=== PATIENT | female | born 1960 | race Caucasian/White ===

== ENCOUNTER → 2019-08-24 | Outpatient (CLI) | payer OTHER ==
--- NOTE | 2019-08-24 15:52 | KCIC ---
CT ORBITS WO CONTRAST Clinical indications: Chronic right mastoiditis, right-sided hearing loss, tympanic membrane perforation, otalgia, otorrhea. Technique: Helical CT scanning of both temporal bones was performed. 1 mm reconstructed axial and coronal small [id number] CT images of each temporal bone were generated and reviewed on a computer monitor. One or more of the following dose reduction techniques were utilized: Automated exposure control (AEC), Adjustment of mA and/or kV according to patient size, Use of iterative reconstruction technique such as ASiR, CT scan done according to ALARA and image gently/image wisely Findings: Right temporal bone: Mild fluid in the mastoid air cells. The middle ear ossicles are identified and no erosion is seen. The scutum appears normal. The middle ear cavity is clear. The vestibulocochlear complex and semicircular canals are morphologically normal in appearance. The internal auditory canal is unremarkable. The facial nerve canal is unremarkable. The jugular foramen is unremarkable. The external ear canal is open. Left temporal bone: The mastoid air cells are clear. The middle ear ossicles are identified and no erosion is seen. The scutum appears normal. The middle ear cavity is clear. The vestibulocochlear complex and semicircular canals are morphologically normal in appearance. The internal auditory canal is unremarkable. The facial nerve canal is unremarkable. The jugular foramen is unremarkable. The external ear canal is open. Impression: Mild amount of fluid in the mastoid air cells on the right, consistent with patient's history of chronic mastoiditis. Temporal bones are otherwise unremarkable. Electronically signed by: Joseph Hughes MD (08/24/2019 2:54 PM) [id number]
== END | disposition home or self-care (01) ==
LOC: KCIC CT 12:25
PROVIDERS: ATTEND Otolaryngology
DX: H70.11 Chronic mastoiditis, right ear (principal)
CPT/HCPCS: 70480

== ENCOUNTER 2019-09-04 06:08 | Day surgery (SDC) | payer OTHER ==
[~2019-09-04] VITALS: Ht 165.1 cm; Wt 63.5 kg
[~2019-09-04 06:08] MED LIST: CYCL10TA2 PO; ESTR1TAB15 PO; LANS15CA78 PO; LOSA25TA54 PO; MEDR2.5T28 PO; ceFAZolin SODIUM IV Push 1 GM VIAL. IVP ONE
[2019-09-04] MEDS ORDERED: PROPOFOL 20 ML IV ONE (06:40)
[2019-09-04] MEDS ORDERED: LIDOCAINE 2% PF 5 ML VIAL. ONE (06:40)
[2019-09-04] MEDS ORDERED: DEXAMETHASONE SOD PHOS 4 MG/ML VIAL ONE ×2 (06:40→07:33)
[2019-09-04] MEDS ORDERED: ONDANSETRON PF 4 MG/2 ML VIAL. ONE (06:40)
[2019-09-04] MEDS ORDERED: HYDROmorphone 2 MG/ML VIAL IV PRN (07:00)
[2019-09-04] MEDS ORDERED: LIDOCAINE 1% PF 2 ML VIAL. ID PRN (07:00)
[2019-09-04] MEDS ORDERED: fentaNYL PF VIAL 100 MCG/2 ML VIAL IV PRN ×2 (07:00)
[2019-09-04] MEDS ORDERED: MORPHINE SULFATE 2 MG/ML VIAL. IV PRN (07:00)
[2019-09-04] MEDS ORDERED: SCOPOLAMINE 1.5MG PATCH. TD ONE (07:00)
[2019-09-04] MEDS ORDERED: IV RINGERS,LACTATED 1000ML 1,000 ML IV SCH (07:00)
[2019-09-04] MEDS ORDERED: ONDANSETRON PF 4 MG/2 ML VIAL. IV PRN (07:00)
[2019-09-04] MEDS ORDERED: PROCHLORPERAZINE 10 MG/2 ML VIAL. IV PRN (07:00)
[2019-09-04] MEDS ORDERED: MUPIROCIN 2 % NASAL OINTMENT 22GM TUBE. ONE (07:02)
[2019-09-04] MEDS ORDERED: LIDOCAINE 1%/EPI 1:100,000 20 ML VIAL. ONE (07:02)
[2019-09-04] MEDS ORDERED: GELATIN SPONGE SIZE 12-7MM SPONGE. ONE ×2 (07:02→08:26)
[2019-09-04] MEDS ORDERED: EPINEPHrine SYRINGE 1 MG/10 ML SYRINGE ONE (07:06)
[2019-09-04] MEDS ORDERED: CIPROFLOXACIN 0.3% OPHTH SOLUTION 5ML BOTTLE. AD ONE (07:15)
[2019-09-04] MEDS ORDERED: ROCURONIUM 50 MG/5 ML VIAL. ONE (07:32)
[2019-09-04] MEDS ORDERED: fentaNYL PF VIAL 100 MCG/2 ML VIAL ONE (07:32)
[2019-09-04] MEDS ORDERED: MIDAZOLAM HCL/PF 2 MG/2 ML VIAL. ONE (07:33)
[2019-09-04] MEDS ORDERED: PHENYLEPHRINE in 0.9% NACL PF 1 MG/10 ML SYRINGE. IV ONE ×2 (08:41→09:32)
--- NOTE | 2019-09-04 10:59 | PDOC4 ---
OPERATIVE NOTE Date: Date: Sep 04, 2019 Pre-Op Diagnosis: right tympanic membrane perforation, chronic right otitis media, chronic right mastoiditis, right conductive hearing loss Post-Op Diagnosis: same as above Procedure Performed: right tympanoplasty with mastoidectomy Surgeon: Dr. Roxanne Pardo Anesthesia Type: GETA Blood Loss: 10mL Specimans Obtained: none Findings: 1. 60% perforation of inferior and posterior tympanic membrane with fungal debris surrounding 2. Thick mucoid discharge in middle ear and mastoid cavity 3. Thickened, inflamed mucosa within middle ear and epitympanum 4. Ossicles intact and mobile Complications: none Operative Note: Dictation #[id number] ROXANEN PARDO MD Sep 04, 2019 10:59
[2019-09-04] MEDS ORDERED: OXYC5CAP PO (11:04)
[2019-09-04] MEDS ORDERED: MUPI22OI2 TP (11:04)
[2019-09-04] MEDS ORDERED: ONDA4TAB12 PO (11:04)
[2019-09-04] MEDS ORDERED: AMOX1TAB61 PO (11:04)
[2019-09-04] MEDS ORDERED: oxyCODONE/APAP 5/325 1 TAB TABLET PO ONE (11:45)
[2019-09-04 12:05] VITALS: BP 134/62
--- NOTE | 2019-09-04 13:43 | OP ---
DATE OF SURGERY: 09/04/2019 PREOPERATIVE DIAGNOSES: 1. Right-sided tympanic membrane perforation. 2. Right-sided chronic otitis media. 3. Right-sided chronic mastoiditis. 4. Right-sided conductive hearing loss. POSTOPERATIVE DIAGNOSES: 1. Right-sided tympanic membrane perforation. 2. Right-sided chronic otitis media. 3. Right-sided chronic mastoiditis. 4. Right-sided conductive hearing loss. PROCEDURE PERFORMED: Right tympanoplasty with mastoidectomy. SURGEON: Roxanne Pardo MD ANESTHESIA: General endotracheal anesthesia. INDICATIONS FOR SURGERY: The patient is a 58-year-old female with several-month history of chronic draining right ear. On examination, the patient has a large perforation of the right eardrum that becomes chronically infected. This continues to have recurrent episodes of drainage despite maximal medical therapy and CT imaging showing inflammation of the mastoid air cells on this side. The patient also has associated conductive hearing loss. The decision was made for the patient to undergo above procedure after risks, benefits, and alternatives of surgery were thoroughly discussed with the patient and informed consent was obtained. ESTIMATED BLOOD LOSS: 10 mL. SPECIMENS: None. INTRAOPERATIVE FINDINGS: 1. 60% perforation involving the inferior and posterior tympanic membrane with fungal debris surrounding the perforation laterally. 2. Thick mucoid discharge within the superior middle ear epitympanum and mastoid cavity. 3. Thickened and inflamed mucosa within the middle ear and epitympanum. 4. Ossicles intact and mobile. COMPLICATIONS: None. DESCRIPTION OF THE PROCEDURE: The patient was brought back to room per Anesthesia and intubated in standard fashion. The patient was then turned to 100 degrees in the room. Facial nerve monitor was set up and verified for accuracy. This was used throughout the case for the patient's safety. The ear microscope was then used to visualize the patient's right external auditory canal. All cerumen was removed. The external auditory canal and tympanic membrane were well visualized. There was noted to be some 60% perforation of the posterior and inferior tympanic membrane, but it was relatively dry. There was some fungal debris emanating from the lateral aspect which was aspirated. A 4-quadrant block of the external auditory canal was performed using 1% lidocaine with 1:100,000 epinephrine. I also injected the postauricular incision. The patient was then prepped and draped in standard fashion. A microscope was used to again visualize the patient's right external auditory canal. The external auditory canal was thoroughly irrigated and tympanic membrane was well visualized. I freshened using a Morris pick and cup forceps circumferentially around the perforation. All the edges of the perforation were freshened. There was some mucoid discharge attached which was thoroughly aspirated. A posterior canal incision was made with a curved and straight [place] blades approximately 4 mm lateral to the annulus. I then used a House round knife to gently elevate the skin of the postauricular area. Topical epinephrine on Gelfoam was placed along the incision lines. I then used a 15 blade to make a postauricular incision down through the skin and subcutaneous tissue. I extended my incision with Bovie electrocautery through the postauricular musculature. I then elevated the ear anteriorly in this plane. I harvested a 1 x 1 cm piece of temporalis fascia and this was flattened and dried on the back table. I then used an inverted 7 Palva flap. I cut through the periosteum. The periosteum was then elevated anteriorly until I came to the posterior ear canal. Under microscopic guidance, I then elevated the skin of the posterior ear canal, so I came in the communication with my previous incisions. A Heather drain was placed and the ear was elevated anteriorly and held in place using Weitlaner retractors. I then elevated the tympanomeatal flap in a standard fashion. In doing so, I entered into the middle ear space and there was thick mucoid discharge present within the middle ear space which was thoroughly aspirated. I then identified the malleus, which was at the rim of the perforation anteriorly and this was the promontory. It was covered with a thick granulation tissue, which was debrided using a sickle knife and cup forceps. I identified the incus in the incudostapedial joint which was also surrounded by thick granulation tissue. This was again debrided with sickle knife and cup forceps. I thoroughly irrigated and aspirated the middle ear space. A mastoidectomy was then performed in a standard fashion. I used a 6-mm cutting estefani to perform the lateral mastoidectomy using the anterior ethmoid dissection of the ear canal, the superior limits of the tegmen and the posterior limits of the sigmoid sinus. The patient had a fairly well aerated mastoid, but there was some thick mucoid discharge present, especially after medial to Kathrin's septum. I did dissect through Kathrin's septum and then continued my dissection with a small drill estefani anteriorly into the epitympanum until I could visualize the incus anteriorly. There was thick mucoid discharge present in this area and this was thoroughly irrigated and debrided using sharp dissection. Once I was able to debride all the inflammatory tissue at the epitympanum, I could then thoroughly irrigate between the epitympanum and middle ear and this was done multiple times to make sure that all the infection had been resolved. I then packed the epitympanum, the eustachian tube orifice as well as the middle ear with Ciprodexsoaked Gelfoam. I laid the tympanomeatal flap back in the correct position. I then elevated the tympanomeatal flap and laid the temporalis fascia graft just medial completely covering circumferentially that perforation and laid the temporalis fascia graft and the tympanomeatal flap back down in the correct position. I then packed the Ciprodex-soaked Gelfoam lateral to the tympanic membrane as well. The Heather drain was removed. The posterior ear canal skin was laid back in the correct position ensuring good eversion. I then placed Ciprodex-soaked Gelfoam along the incision line and within the medial ear canal. Mupirocin ointment was placed within the lateral ear canal and a cotton ball was placed in the patient's ear. The postauricular incision was closed, closing the periosteum with simple interrupted sutures of 3-0 Vicryl. I then closed the deep dermal layer with buried interrupted sutures of 4-0 Vicryl and a running locking suture of 50 chromic was used to close the skin. Mupirocin ointment was placed along the incision. Hickory dressing was applied. The patient was turned back over to anesthesia and extubated without complication. Our sponge, needle, instrument counts were correct at the end of the case. COMPLICATIONS: None. DISPOSITION: Stable and transferred to the recovery room. ROXANNE PARDO MD DR: CARROLL/cruz JOB#: [id number] / [id number]
== END 2019-09-04 12:30 | disposition home or self-care (01) ==
LOC: SURG 06:08 → EDUNIT# 07:30 → SURG 12:30
PROVIDERS: ATTEND Otolaryngology
DX: H72.91 Unspecified perforation of tympanic membrane, right ear (principal); H66.91 Otitis media, unspecified, right ear; H70.11 Chronic mastoiditis, right ear; H90.11 Conductive hearing loss, unilateral, right ear, with unrestricted hearing on the contralateral side; I10 Essential (primary) hypertension; K21.9 Gastro-esophageal reflux disease without esophagitis; Z90.49 Acquired absence of other specified parts of digestive tract
CPT/HCPCS: 69641; A7015; J0171; J0690; J1100; J2001; J2250; J2370; J2405; J2704; J3010; J3490; J7030; J7120; A4461

== ENCOUNTER → 2020-01-07 | Outpatient (CLI) | payer OTHER ==
[~2020-01-07] MED LIST changes: +AMOX1TAB61 PO; +ESTR-113 PO; -ESTR1TAB15 PO; +MUPI22OI2 TP; +ONDA4TAB12 PO; +OXYC5CAP PO; -ceFAZolin SODIUM IV Push 1 GM VIAL. IVP ONE
[2020-01-07 12:29] LABS: HEMATOCRIT 41.3 % (36.0-47.0); HEMOGLOBIN 13.8 g/dL (12.0-15.5); RED BLOOD COUNT 4.53 x10^6/uL (3.50-5.40); WHITE BLOOD COUNT 3.3 x10^3/uL (4.0-11.0)
[2020-01-07 12:48] LABS: ALBUMIN/GLOBULIN RATIO 1.1 (1.0-1.7); CALCIUM 8.8 mg/dL (8.5-10.1); CREATININE 0.9 mg/dL (0.6-1.0); GFR 63.7; MAGNESIUM 2.3 mg/dL (1.8-2.4); POTASSIUM 3.5 mmol/L (3.5-5.1); TOTAL BILIRUBIN 0.5 mg/dL (0.2-1.0); TOTAL PROTEIN 7.5 g/dL (6.4-8.2)
[2020-01-07 12:59] LABS: FREE T4 0.84 ng/dL (0.76-1.46); THYROID STIM HORMONE (TSH) 1.855 uIU/mL (0.358-3.74)
[2020-01-08 00:07] LABS: HEMOGLOBIN A1C 5.4 % (4.8-5.6)
== END | disposition home or self-care (01) ==
LOC: LAB 12:02
PROVIDERS: ATTEND Family Medicine
DX: R73.9 Hyperglycemia, unspecified (principal); R00.0 Tachycardia, unspecified; E55.9 Vitamin D deficiency, unspecified
CPT/HCPCS: 36415; 80053; 82306; 83036; 83735; 84439; 84443; 85027

== ENCOUNTER → 2021-08-21 | Outpatient (CLI) | payer OTHER ==
[~2021-08-21] MED LIST changes: +CYCL10TA19 PO; -CYCL10TA2 PO; +LANS15CA73 PO; -LANS15CA78 PO
== END ==
LOC: LAB 12:49
PROVIDERS: ATTEND Internal Medicine Pulmonary Disease
DX: U07.1 COVID-19 (principal)
CPT/HCPCS: U0003; U0005